=== PATIENT | female | born 1970 | race American Indian/Alaskan Native ===

== ENCOUNTER 2024-02-03 08:22 | Emergency (ER) | payer SELFPAY ==
[~2024-02-03 08:22] MED LIST: Bacitracin Oint 1 GM U/D Packet TOP ONE; Lidocaine 1% 30 ML SDV INFILT ONE
== END 2024-02-03 08:45 | disposition home or self-care (01) ==
LOC: DL.ED 08:22
DX: S61.211A Laceration without foreign body of left index finger without damage to nail, initial encounter (principal); W26.8XXA Contact with other sharp object(s), not elsewhere classified, initial encounter
CPT/HCPCS: 12001; 99282; 99283